=== PATIENT | female | born 1960 | race Caucasian/White ===

== ENCOUNTER 2022-09-13 10:15 | Emergency (ER) | payer MEDICAID ==
[~2022-09-13] VITALS: Ht 154.9 cm; Wt 81.2 kg
[2022-09-13 10:20] VITALS: TEMP 98.3; O2SAT 98
[2022-09-13 12:45] VITALS: BP 162/84; PULSE 103; RESP 18
[2022-09-13] MEDS ORDERED: KETOROLAC 60MG/2ML VIAL IM ONE (12:45)
[2022-09-13] MEDS ORDERED: MELO-105 MT (12:46)
== END 2022-09-13 13:20 | disposition home or self-care (01) ==
LOC: ER 10:15
DX: S83.92XA Sprain of unspecified site of left knee, initial encounter (principal); I10 Essential (primary) hypertension; E78.00 Pure hypercholesterolemia, unspecified; E11.9 Type 2 diabetes mellitus without complications; X58.XXXA Exposure to other specified factors, initial encounter; Y93.89 Activity, other specified; Y92.89 Other specified places as the place of occurrence of the external cause; Y99.8 Other external cause status
CPT/HCPCS: 99283; 73562; 96372; J1885

== ENCOUNTER 2024-12-18 15:54 | Emergency (ER) | payer MEDICAID ==
[~2024-12-18] VITALS: Ht 160 cm; Wt 82.0 kg
[~2024-12-18 15:54] MED LIST: MELO-105 MT
[2024-12-18 16:43] VITALS: O2SAT 99
[2024-12-18] MEDS ORDERED: HYDR-4001 MT (18:33)
[2024-12-18] MEDS ORDERED: IBUP-2028 MT (18:33)
[2024-12-18 19:01] VITALS: TEMP 36.8; O2SAT 98
[2024-12-18 19:05] VITALS: BP 165/70; PULSE 66; RESP 16
[2024-12-18] MEDS: HYDROCODONE/ACETAMINOPHEN 5/325MG TABLET PO ONE (19:05)
[2024-12-18] MEDS: IBUPROFEN 400MG TABLET PO ONE (19:05)
== END 2024-12-18 19:05 | disposition home or self-care (01) ==
LOC: ER 15:54
DX: S52.502A Unspecified fracture of the lower end of left radius, initial encounter for closed fracture (principal); I10 Essential (primary) hypertension; E78.00 Pure hypercholesterolemia, unspecified; E11.9 Type 2 diabetes mellitus without complications; Z79.1 Long term (current) use of non-steroidal anti-inflammatories (NSAID); W01.0XXA Fall on same level from slipping, tripping and stumbling without subsequent striking against object, initial encounter; Y93.89 Activity, other specified; Y92.89 Other specified places as the place of occurrence of the external cause; Y99.8 Other external cause status
CPT/HCPCS: 99283; 73130; 29125; A6449